=== PATIENT | male | born 1980 | race Caucasian/White ===

== ENCOUNTER 2017-01-16 03:54 | Emergency (ER) | payer OTHER ==
[~2017-01-16] VITALS: Ht 172.7 cm; Wt 68.0 kg
[2017-01-16] MEDS ORDERED: NKM (04:02)
--- NOTE | 2017-01-16 04:16 | Emergency Room Report ---
History of Present Illness General Chief Complaint: Laceration Source: Patient Present Illness HPI Is 36-year-old male with no past medical history. He presents with chewing laceration to the right eyebrow. He bumped his head into the bed post. Sustained a laceration. No loss of consciousness. Occurred just prior to arrival. Denies any other complaint. Allergies: Coded Allergies: No Known Allergies (Unverified , 01/16/17) Patient History Past Medical History: none, see triage record, old chart reviewed Past Surgical History: none Pertinent Family History: none Social History: Denies: smoking Immunizations: other Reviewed Nursing Documentation: PMH: Agreed, PSxH: Agreed Nursing Documentation-PMH Past Medical History: No Stated History Review of Systems Eye: Denies: eye pain, blurred vision ENT: Denies: ear pain, nose congestion, throat swelling Respiratory: Denies: cough, shortness of breath Cardiovascular: Denies: chest pain, palpitations Gastrointestinal: Denies: abdominal pain, diarrhea, nausea, vomiting Musculoskeletal: Denies: back pain, joint pain Skin: Denies: rash Neurological: Denies: headache, numbness Endocrine: Denies: increased thirst, increased urine Hematologic/Lymphatic: Denies: easy bruising All Other Systems: negative except mentioned in HPI Physical Exam Vital Signs Date Time Temp Pulse Resp B/P (MAP) Pulse Ox O2 Delivery O2 Flow Rate FiO2 01/16/17 03:58 97.3 57 18 127/83 98 Room Air vitals normal Sp02 EP Interpretation: reviewed, normal General Appearance: well appearing, no apparent distress, alert Head: normocephalic, other - 1 cm laceration to the right eyebrow medially. No foreign body. Eyes: bilateral eye PERRL, bilateral eye EOMI ENT: hearing grossly normal, normal pharynx Neck: full range of motion, supple, no meningismus Respiratory: chest non-tender, lungs clear, normal breath sounds Cardiovascular #1: regular rate, rhythm, no murmur Gastrointestinal: normal bowel sounds, non tender, no mass, no organomegaly, no bruit, non-distended Musculoskeletal: back normal, gait/station normal, normal range of motion Psychiatric: mood/affect normal Skin: warm/dry Procedures Laceration/Wound Repair Laceration/Wound Repair : Consent: Verbal Wound Location: face Wound's Depth, Shape: superficial Wound Length (cm): 1 Wound Explored: clean Irrigated w/ Saline (ccs): 500 Betadine Prep?: No Anesthesia: 1% Lidocaine Volume Anesthetic (ccs): 1 Wound Repaired With: sutures Suture Size/Type: 6:0, other - rapide chromic Number of Sutures: 3 Medical Decision Making Diagnostic Impression: Primary Impression: Laceration of eyebrow, right Qualified Codes: S01.111A - Laceration without foreign body of right eyelid and periocular area, initial encounter ER Course Patient with eyebrow laceration. No foreign body. Low risk for infection. We' ll discharge home. Last Vital Signs Date Time Temp Pulse Resp B/P (MAP) Pulse Ox O2 Delivery O2 Flow Rate FiO2 01/16/17 03:58 97.3 57 18 127/83 98 Room Air Status: improved Disposition: HOME, SELF-CARE Condition: Stable Patient Instructions: Facial Laceration Additional Instructions: Followup with your Dr. in 7 days. Return if worse. SUSANNAH WOMACK M.D. Jan 16, 2017 04:16
[2017-01-16 04:36] VITALS: BP 122/81
[2017-01-16 04:51] VITALS: BP 127/83
== END 2017-01-16 04:36 | disposition home or self-care (01) ==
LOC: EMR 04:23
DX: S01.111A Laceration without foreign body of right eyelid and periocular area, initial encounter (principal); W22.8XXA Striking against or struck by other objects, initial encounter; Y92.89 Other specified places as the place of occurrence of the external cause
CPT/HCPCS: 99283